=== PATIENT | male | born 2000 ===

== ENCOUNTER 2018-03-30 06:48 | Emergency (ER) | payer MEDICAID, OTHER ==
[2018-03-30] MEDS ORDERED: Hydrocortisone 2.5% Rectal Cream(30 gm) PR ONE (07:34)
[2018-03-30] MEDS ORDERED: cefTRIAXone (Rocephin) 250 mg Inj IM STA (07:36)
--- NOTE | 2018-03-30 07:39 | C.PDOC ---
History Of Present Illness 17 year old male patient presents to the ER with c/o rectal pain when walking, sitting and using the bathroom. Associated symptom includes blood when wiping. Patient reports he started having unprotected sexual intercourse with men for the first time x1 week ago; x2 days ago his symptoms appeared. Patient denies fever, chills, discharge in rectal area, penile discharge, abdominal pain, pelvic pain, nausea and vomiting. Time Seen by Provider: 03/30/18 06:59 Chief Complaint (Nursing): Male Genitourinary History Per: Patient History/Exam Limitations: no limitations Onset/Duration Of Symptoms: Days (x2), Waxing/Waning Past Medical History Reviewed: Historical Data, Nursing Documentation, Vital Signs Vital Signs: Last Vital Signs Temp 98.3 F 03/30/18 10:17 Pulse 68 03/30/18 10:17 Resp 18 03/30/18 10:17 BP 133/72 03/30/18 10:17 Pulse Ox 99 03/30/18 10:17 Family History: States: No Known Family Hx - Social History Hx Alcohol Use: No Hx Substance Use: No - Immunization History Hx Tetanus Toxoid Vaccination: No Hx Influenza Vaccination: No Hx Pneumococcal Vaccination: No Review Of Systems Except As Marked, All Systems Reviewed And Found Negative. Physical Exam - Physical Exam Appears: Non-toxic, No Acute Distress Skin: Normal Color, Warm, Dry Head: Atraumatic, Normacephalic Eye(s): bilateral: Normal Inspection, PERRL, EOMI Ear(s): Bilateral: Normal Oral Mucosa: Moist Chest: Symmetrical Cardiovascular: Rhythm Regular, No Murmur Respiratory: Normal Breath Sounds, No Rales, No Rhonchi, No Wheezing Gastrointestinal/Abdominal: Soft, No Tenderness Rectal: No Hemorrhoids, Other (itchy; no open wound, active bleeding and sweating. ) Extremity: Normal ROM (x4) Extremity: Bilateral: Atraumatic, Normal Color And Temperature Neurological/Psych: Oriented x3, Normal Speech Gait: Steady ED Course And Treatment O2 Sat by Pulse Oximetry: 100 (RA) Pulse Ox Interpretation: Normal Medical Decision Making Medical Decision Making: Impression: rectal pain Plans: -- Hepatitis B test -- HIV test -- GC/Chlamydia -- Rapid plasma reagin -- Hydrocortisone 2.5% -- Rocephine -- Zithromax Digital rectal exam results: no swelling, lumps or abscess. HIV results: (-) negative Hepatitis B results: (-) negative Reassess: Patient is resting comfortably. Tolerating PO. Patient is afebrile at this time and will be discharged. Patient is instructed to f/u with PCP in 1-2 days. Disposition - Disposition Referrals: [facility] at [facility] [Outside] [facility] at [facility] [Outside] [facility] [Outside] Disposition: HOME/ ROUTINE Disposition Time: 10:17 Condition: GOOD Prescriptions: Hard Fat/Phenylephrine [place] [Hemorrhoidal 88.7%-0.25%] 88.7 sup MI BID 7 Days # 14 sup Ibuprofen [Motrin] 600 mg PO Q6 5 Days #20 tab Instructions: Hemorrhoids Forms: [facility] (Ivorian) - Clinical Impression Clinical Impression: Fissure in ano, Hemorrhoid - Scribe Statement The provider has reviewed the documentation as recorded by the Scribe Celestin Do Provider Attestation: All medical record entries made by the Scribe were at my direction and personally dictated by me. I have reviewed the chart and agree that the record accurately reflects my personal performance of the history, physical exam, medical decision making, and the department course for this patient. I have also personally directed, reviewed, and agree with the discharge instructions and disposition.
[2018-03-30 09:03] LABS: HEPATITIS B SURFACE AG Negative (NEGATIVE)
[2018-03-30 09:21] LABS: HEPATITIS B CORE AB NEGATIVE (NEGATIVE)
[2018-03-30 09:27] LABS: HEPATITIS C ANTIBODY NEGATIVE (NEGATIVE)
[2018-03-30 10:19] VITALS: BP 133/72; PULSE 68; RESP 18; TEMP 98.3
[2018-04-03 12:10] VITALS: O2SAT 100
== END 2018-03-30 10:22 | disposition home or self-care (01) ==
LOC: C.ER 06:48
DX: K60.2 Anal fissure, unspecified (principal); K64.9 Unspecified hemorrhoids
CPT/HCPCS: 86592; 86703; 86705; 86706; 86803; 87340; 87491; 87591; 96372; 99284; J0696